=== PATIENT | female | born 1955 | race Caucasian/White ===

== ENCOUNTER 2017-06-06 06:13 | Day surgery (SDC) | payer OTHER ==
[2017-06-03 16:54] VITALS: BMI 32.9
[2017-06-06 07:05] VITALS: TEMP 98
--- NOTE | 2017-06-06 07:10 | HP ---
Admitting History and Physical - Primary Care Physician PCP: Gabriela La - Admission History of Present Illness: Patient is a 62 y/o female with a past medical history of anxiety/depression, hyperlipidemia, IBD, iron deficiency anemia (s/p gastric bypass), and migraine. Patient presents for ECT, this will be her first ECT. She reports trying different medication regimens in the past and was referred for ect by her psychiatrist at [facility]. She denies any suicidal or homicidal ideation, visual or auditory hallucinations. She reports her last hospitalization for depression was in 2004 at [facility]. 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 Cardiovascular: Yes: Hyperlipdemia Gastrointestinal: Yes: Irritable Bowel Disease Psych: Yes: Anxiety, Depression - Smoking History Smoking history: Never smoked Home Medications - Allergies Allergies/Adverse Reactions: Allergies Allergy/AdvReac Type Severity Reaction Status Date / Time Penicillins Allergy Severe Verified 06/03/17 16:32 - Home Medications Home Medications: Ambulatory Orders Amitriptyline HCl [Elavil -] 125 mg PO HS 06/03/17 Aspirin [Aspirin EC] 81 mg PO HS 06/03/17 Clonazepam [Klonopin] 1 mg PO HS 06/03/17 Docusate Sodium [Colace -] 300 mg PO HS 06/03/17 Ergocalciferol (Vitamin D2) [Vitamin D2] 50,000 unit PO WEEKLY 06/03/17 Fluticasone Prop 0.05% Nasal [Flonase -] 1 - 2 spray NS BID PRN 06/03/17 Methylcellulose [Citrucel] 500 mg PO HS 06/03/17 Metoprolol Tartrate [Lopressor -] 12.5 mg PO DAILY 06/03/17 Perphenazine 8 mg PO HS 06/03/17 Perphenazine [Trilafon] 4 mg PO DAILY 06/03/17 Rosuvastatin [Crestor -] 10 mg PO HS 06/03/17 Topiramate [Topamax] 100 mg PO HS 06/03/17 Family Disease History - Family Disease History Family History: Denies Review of Systems - Review of Systems Constitutional: reports: No Symptoms Eyes: reports: No Symptoms HENT: reports: No Symptoms Neck: reports: No Symptoms Cardiovascular: reports: No Symptoms Respiratory: reports: No Symptoms Gastrointestinal: reports: No Symptoms Genitourinary: reports: No Symptoms Breasts: reports: No Symptoms Reported Musculoskeletal: reports: No Symptoms Integumentary: reports: No Symptoms Neurological: reports: No Symptoms Endocrine: reports: No Symptoms Hematology/Lymphatic: reports: No Symptoms Psychiatric: reports: Anxiety, Depression Physical Examination Constitutional: Yes: Well Nourished, No Distress, Calm Eyes: Yes: WNL, Conjunctiva Clear, EOM Intact HENT: Yes: WNL, Atraumatic, Normocephalic Neck: Yes: WNL, Supple, Trachea Midline Cardiovascular: Yes: WNL, Regular Rate and Rhythm, S1, S2 Respiratory: Yes: WNL, Regular, CTA Bilaterally Gastrointestinal: Yes: WNL, Normal Bowel Sounds, Soft ...Rectal Exam: Yes: Deferred Renal/: Yes: WNL Breast(s): Yes: WNL Musculoskeletal: Yes: WNL Extremities: Yes: WNL Edema: No Peripheral Pulses WNL: Yes Peripheral Pulses: Left Radial: 4+, Right Radial: 4+, Left Doralis Pedis: 3+, Right Dorsalis Pedis: 3+, Left Femoral: 3+, Right Femoral: 3+ Integumentary: Yes: WNL Neurological: Yes: WNL, Alert, Oriented ...Motor Strength: WNL Psychiatric: Yes: WNL, Alert, Oriented Labs: reviewed 12/24 Imaging - Results EKG: Image Reviewed, Other (nsr no ischemic changes) Assessment/Plan patient is a 62y/o female that presents for ect, patient's labs and ekg reviewed. pt is low risk for procedure.
[2017-06-06] MEDS ORDERED: KETAMINE HCL 500 MG/10 ML VIAL ONE (08:54)
[2017-06-06 10:02] VITALS: BP 129/82; PULSE 71
[2017-06-06] MEDS ORDERED: ONDANSETRON 4 MG/2 ML VIAL IVPUSH PRN (12:25)
[2017-06-06] MEDS ORDERED: LACTATED RINGERS SOLUTION 1,000 ML IV SCH (12:30)
== END 2017-06-06 10:00 | disposition home or self-care (01) ==
LOC: FECT 06:13
PROVIDERS: ATTEND Psychiatry & Neurology Psychiatry
PROC: GZB4ZZZ Other Electroconvulsive Therapy (ICD-10-PCS; principal; 2017-06-06 08:15)
DX: F33.3 Major depressive disorder, recurrent, severe with psychotic symptoms (principal); E78.5 Hyperlipidemia, unspecified; F41.9 Anxiety disorder, unspecified; D50.9 Iron deficiency anemia, unspecified; K58.9 Irritable bowel syndrome, unspecified; Z79.84 Long term (current) use of oral hypoglycemic drugs; Z98.84 Bariatric surgery status
CPT/HCPCS: 90870; 94760

== ENCOUNTER 2017-06-08 05:41 | Day surgery (SDC) | payer OTHER ==
[2017-06-06 13:50] VITALS: BMI 32.9
[2017-06-08] MEDS ORDERED: KETAMINE HCL 500 MG/10 ML VIAL ONE (07:42)
[2017-06-08] MEDS ORDERED: ONDANSETRON 4 MG/2 ML VIAL IVPUSH PRN (08:15)
[2017-06-08] MEDS ORDERED: ACETAMINOPHEN 325 MG TABLET (FP) PO PRN (08:15)
[2017-06-08 08:47] VITALS: TEMP 98.2
[2017-06-08 09:13] VITALS: BP 132/86; PULSE 78
== END 2017-06-08 09:23 | disposition home or self-care (01) ==
LOC: FECT 05:41
PROVIDERS: ATTEND Psychiatry & Neurology Psychiatry
PROC: GZB4ZZZ Other Electroconvulsive Therapy (ICD-10-PCS; principal; 2017-06-08 08:30)
DX: F33.2 Major depressive disorder, recurrent severe without psychotic features (principal)
CPT/HCPCS: 90870; 94760

== ENCOUNTER 2017-06-10 05:39 | Day surgery (SDC) | payer OTHER ==
[2017-06-07 10:42] VITALS: BMI 32.9
[2017-06-10] MEDS ORDERED: KETAMINE HCL 500 MG/10 ML VIAL ONE (07:29)
[2017-06-10 08:25] VITALS: TEMP 98.1
[2017-06-10 09:08] VITALS: BP 126/84; PULSE 70
== END 2017-06-10 09:10 | disposition home or self-care (01) ==
LOC: FECT 05:39
PROVIDERS: ATTEND Psychiatry & Neurology Psychiatry
PROC: GZB4ZZZ Other Electroconvulsive Therapy (ICD-10-PCS; principal; 2017-06-10 08:45)
DX: F33.2 Major depressive disorder, recurrent severe without psychotic features (principal)
CPT/HCPCS: 90870; 94760

== ENCOUNTER 2017-06-15 05:41 | Day surgery (SDC) | payer OTHER ==
[2017-06-07 10:47] VITALS: BMI 32.9
[2017-06-15] MEDS ORDERED: KETAMINE HCL 500 MG/10 ML VIAL ONE (07:07)
[2017-06-15] MEDS ORDERED: ACETAMINOPHEN 325 MG TABLET (FP) PO PRN (07:43)
[2017-06-15] MEDS ORDERED: ONDANSETRON 4 MG/2 ML VIAL IVPUSH PRN (07:43)
[2017-06-15 08:08] VITALS: TEMP 98.3
[2017-06-15 09:36] VITALS: BP 126/78; PULSE 72
== END 2017-06-15 09:15 | disposition home or self-care (01) ==
LOC: FECT 05:41
PROVIDERS: ATTEND Psychiatry & Neurology Psychiatry
PROC: GZB4ZZZ Other Electroconvulsive Therapy (ICD-10-PCS; principal; 2017-06-15 07:15)
DX: F33.2 Major depressive disorder, recurrent severe without psychotic features (principal)
CPT/HCPCS: 90870; 94760

== ENCOUNTER 2017-06-17 06:35 | Day surgery (SDC) | payer OTHER ==
[2017-06-07 10:50] VITALS: BMI 32.9
[2017-06-17] MEDS ORDERED: KETAMINE HCL 500 MG/10 ML VIAL ONE (08:51)
[2017-06-17] MEDS ORDERED: LACTATED RINGERS SOLUTION 1,000 ML IV SCH (09:15)
[2017-06-17 10:47] VITALS: TEMP 98.6
[2017-06-17 10:49] VITALS: BP 132/82; PULSE 72
== END 2017-06-17 10:35 | disposition home or self-care (01) ==
LOC: FECT 06:35
PROVIDERS: ATTEND Psychiatry & Neurology Psychiatry
PROC: GZB4ZZZ Other Electroconvulsive Therapy (ICD-10-PCS; principal; 2017-06-17 07:30)
DX: F33.2 Major depressive disorder, recurrent severe without psychotic features (principal)
CPT/HCPCS: 90870; 94760

== ENCOUNTER 2017-06-20 05:35 | Day surgery (SDC) | payer OTHER ==
[2017-06-20 06:28] VITALS: TEMP 98.5
[2017-06-20] MEDS ORDERED: KETAMINE HCL 500 MG/10 ML VIAL ONE (06:58)
[2017-06-20] MEDS ORDERED: ONDANSETRON 4 MG/2 ML VIAL IVPUSH PRN (07:26)
[2017-06-20 08:15] VITALS: BP 137/89; PULSE 76
== END 2017-06-20 09:00 | disposition home or self-care (01) ==
LOC: FECT 05:35
PROVIDERS: ATTEND Psychiatry & Neurology Psychiatry
PROC: GZB4ZZZ Other Electroconvulsive Therapy (ICD-10-PCS; principal; 2017-06-20 07:30)
DX: F33.2 Major depressive disorder, recurrent severe without psychotic features (principal)
CPT/HCPCS: 90870; 94760

== ENCOUNTER 2017-06-22 05:51 | Day surgery (SDC) | payer OTHER ==
[2017-06-15 15:52] VITALS: BMI 32.9
[2017-06-22] MEDS ORDERED: KETAMINE HCL 500 MG/10 ML VIAL ONE (07:40)
[2017-06-22 08:56] VITALS: PULSE 75
[2017-06-22 09:14] VITALS: TEMP 97.5
[2017-06-22 09:28] VITALS: BP 122/80
== END 2017-06-22 09:29 | disposition home or self-care (01) ==
LOC: FECT 05:51
PROVIDERS: ATTEND Psychiatry & Neurology Psychiatry
PROC: GZB4ZZZ Other Electroconvulsive Therapy (ICD-10-PCS; principal; 2017-06-22 07:00)
DX: F33.2 Major depressive disorder, recurrent severe without psychotic features (principal)
CPT/HCPCS: 90870; 94760

== ENCOUNTER 2017-06-24 05:58 | Day surgery (SDC) | payer OTHER ==
[2017-06-16 08:10] VITALS: BMI 32.9
[2017-06-24] MEDS ORDERED: KETAMINE HCL 500 MG/10 ML VIAL ONE (07:50)
[2017-06-24 08:52] VITALS: TEMP 98.8
[2017-06-24 09:48] VITALS: BP 119/69; PULSE 82
== END 2017-06-24 09:30 | disposition home or self-care (01) ==
LOC: FECT 05:58
PROVIDERS: ATTEND Psychiatry & Neurology Psychiatry
PROC: GZB4ZZZ Other Electroconvulsive Therapy (ICD-10-PCS; principal; 2017-06-24 07:00)
DX: F33.2 Major depressive disorder, recurrent severe without psychotic features (principal)
CPT/HCPCS: 90870; 94760

== ENCOUNTER 2017-06-27 05:36 | Day surgery (SDC) | payer OTHER ==
[2017-06-21 07:40] VITALS: BMI 32.9
[2017-06-27] MEDS ORDERED: KETAMINE HCL 500 MG/10 ML VIAL ONE (07:08)
[2017-06-27] MEDS ORDERED: LACTATED RINGERS SOLUTION 1,000 ML IV SCH (08:00)
[2017-06-27 08:24] VITALS: TEMP 98.7
[2017-06-27 09:44] VITALS: BP 122/72; PULSE 70
== END 2017-06-27 09:30 | disposition home or self-care (01) ==
LOC: FECT 05:36
PROVIDERS: ATTEND Psychiatry & Neurology Psychiatry
PROC: GZB4ZZZ Other Electroconvulsive Therapy (ICD-10-PCS; principal; 2017-06-27 07:00)
DX: F33.2 Major depressive disorder, recurrent severe without psychotic features (principal)
CPT/HCPCS: 90870; 94760

== ENCOUNTER 2017-06-29 05:38 | Day surgery (SDC) | payer OTHER ==
[2017-06-29] MEDS ORDERED: KETAMINE HCL 500 MG/10 ML VIAL ONE (07:39)
[2017-06-29 08:50] VITALS: TEMP 98.3
[2017-06-29 09:44] VITALS: BP 121/81; PULSE 80
== END 2017-06-29 09:42 | disposition home or self-care (01) ==
LOC: FECT 05:38
PROVIDERS: ATTEND Psychiatry & Neurology Psychiatry
PROC: GZB4ZZZ Other Electroconvulsive Therapy (ICD-10-PCS; principal; 2017-06-29 07:00)
DX: F33.2 Major depressive disorder, recurrent severe without psychotic features (principal)
CPT/HCPCS: 90870; 94760

== ENCOUNTER 2017-07-04 05:37 | Day surgery (SDC) | payer OTHER ==
[2017-06-28 10:25] VITALS: BMI 32.9
[2017-07-04] MEDS ORDERED: KETAMINE HCL 500 MG/10 ML VIAL ONE (07:05)
[2017-07-04 08:21] VITALS: TEMP 97.8
[2017-07-04 09:30] VITALS: BP 114/73; PULSE 88
== END 2017-07-04 09:15 | disposition home or self-care (01) ==
LOC: FECT 05:37
PROVIDERS: ATTEND Psychiatry & Neurology Psychiatry
PROC: GZB4ZZZ Other Electroconvulsive Therapy (ICD-10-PCS; principal; 2017-07-04 07:00)
DX: F33.2 Major depressive disorder, recurrent severe without psychotic features (principal)
CPT/HCPCS: 90870; 94760

== ENCOUNTER 2017-07-06 05:38 | Day surgery (SDC) | payer OTHER ==
[2017-06-28 09:55] VITALS: BMI 32.9
[2017-07-06] MEDS ORDERED: KETAMINE HCL 500 MG/10 ML VIAL ONE (06:57)
[2017-07-06 07:52] VITALS: TEMP 98.6
--- NOTE | 2017-07-06 08:07 | HP ---
Admitting History and Physical - Admission History of Present Illness: patient is a 62 y/o female with a past medical history of anxiety, depression, hyperlipidemia, IBD, and iron deficiency anemia (s/p gastric bypass). Patient presents for ect his last ect was 07/04/17. She reports feeling well, she does report some improvement in depressive symptoms since starting ECT. She denies any recent illnesses or hospitalizations. She denies any suicidal or homicidal ideation, visual or auditory hallucinations. 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 Cardiovascular: Yes: Hyperlipdemia Gastrointestinal: Yes: Irritable Bowel Disease Psych: Yes: Anxiety, Depression - Smoking History Smoking history: Never smoked Have you smoked in the past 12 months: No - Alcohol/Substance Use Hx Alcohol Use: No Home Medications - Allergies Allergies/Adverse Reactions: Allergies Allergy/AdvReac Type Severity Reaction Status Date / Time Penicillins Allergy Severe Verified 06/03/17 16:32 - Home Medications Home Medications: Ambulatory Orders Amitriptyline HCl [Elavil -] 125 mg PO HS 06/03/17 Aspirin [Aspirin EC] 81 mg PO HS 06/03/17 Clonazepam [Klonopin] 1 mg PO HS 06/03/17 Docusate Sodium [Colace -] 300 mg PO HS 06/03/17 Ergocalciferol (Vitamin D2) [Vitamin D2] 50,000 unit PO WEEKLY 06/03/17 Fluticasone Prop 0.05% Nasal [Flonase -] 1 - 2 spray NS BID PRN 06/03/17 Methylcellulose [Citrucel] 500 mg PO HS 06/03/17 Metoprolol Tartrate [Lopressor -] 12.5 mg PO DAILY 06/03/17 Perphenazine 8 mg PO HS 06/03/17 Perphenazine [Trilafon -] 4 mg PO DAILY 06/03/17 Rosuvastatin [Crestor -] 10 mg PO HS 06/03/17 Topiramate [Topamax] 150 mg PO HS 06/20/17 Family Disease History - Family Disease History Family History: Denies Review of Systems - Review of Systems Constitutional: reports: No Symptoms Eyes: reports: No Symptoms HENT: reports: No Symptoms Neck: reports: No Symptoms Cardiovascular: reports: No Symptoms Respiratory: reports: No Symptoms Gastrointestinal: reports: No Symptoms Genitourinary: reports: No Symptoms Breasts: reports: No Symptoms Reported Musculoskeletal: reports: No Symptoms Integumentary: reports: No Symptoms Neurological: reports: No Symptoms Endocrine: reports: No Symptoms Hematology/Lymphatic: reports: No Symptoms Psychiatric: reports: No Symptoms Physical Examination Vital Signs: Vital Signs Temperature 98.6 F 07/06/17 07:45 Pulse Rate 74 07/06/17 07:45 Respiratory Rate 18 07/06/17 07:45 Blood Pressure 119/80 07/06/17 07:45 O2 Sat by Pulse Oximetry (%) 97 07/06/17 07:45 Constitutional: Yes: Well Nourished, No Distress, Calm Eyes: Yes: WNL, Conjunctiva Clear, EOM Intact HENT: Yes: WNL, Atraumatic, Normocephalic Neck: Yes: WNL, Supple, Trachea Midline Cardiovascular: Yes: WNL, Regular Rate and Rhythm, S1, S2 Respiratory: Yes: WNL, Regular, CTA Bilaterally Gastrointestinal: Yes: WNL, Normal Bowel Sounds, Soft ...Rectal Exam: Yes: Deferred Renal/: Yes: WNL Breast(s): Yes: WNL Musculoskeletal: Yes: WNL Extremities: Yes: WNL Edema: No Peripheral Pulses WNL: Yes Peripheral Pulses: Left Radial: 4+, Right Radial: 4+, Left Doralis Pedis: 3+, Right Dorsalis Pedis: 3+, Left Femoral: 3+, Right Femoral: 3+ Integumentary: Yes: WNL Neurological: Yes: WNL, Alert, Oriented ...Motor Strength: WNL Psychiatric: Yes: WNL, Alert, Oriented Labs: reviewed 06/03/17 Imaging - Results EKG: Image Reviewed, Other (nsr no ischemic changes) Assessment/Plan patient is a 62 y/o female that presents for ect, labs and ekg reviewed patient is medically optimized for procedure informed consent, risks/benefits to be obtained by Dr Olson
[2017-07-06 09:02] VITALS: BP 119/77; PULSE 71
== END 2017-07-06 09:04 | disposition home or self-care (01) ==
LOC: FECT 05:38
PROVIDERS: ATTEND Psychiatry & Neurology Psychiatry
PROC: GZB4ZZZ Other Electroconvulsive Therapy (ICD-10-PCS; principal; 2017-07-06 07:00)
DX: F33.2 Major depressive disorder, recurrent severe without psychotic features (principal)
CPT/HCPCS: 90870; 94760

== ENCOUNTER 2017-07-08 05:41 | Day surgery (SDC) | payer OTHER ==
[2017-07-06 09:10] VITALS: BMI 32.9
[2017-07-08 06:13] VITALS: TEMP 98.1
[2017-07-08] MEDS ORDERED: KETAMINE HCL 500 MG/10 ML VIAL ONE (07:16)
[2017-07-08] MEDS ORDERED: ONDANSETRON 4 MG/2 ML VIAL IVPUSH PRN (08:42)
[2017-07-08] MEDS ORDERED: ACETAMINOPHEN 325 MG TABLET (FP) PO PRN (08:42)
[2017-07-08 08:43] VITALS: BP 131/81; PULSE 78
== END 2017-07-08 09:00 | disposition home or self-care (01) ==
LOC: FECT 05:41
PROVIDERS: ATTEND Psychiatry & Neurology Psychiatry
PROC: GZB4ZZZ Other Electroconvulsive Therapy (ICD-10-PCS; principal; 2017-07-08 08:00)
DX: F33.2 Major depressive disorder, recurrent severe without psychotic features (principal)
CPT/HCPCS: 90870; 94760

== ENCOUNTER 2017-07-11 05:38 | Day surgery (SDC) | payer OTHER ==
[2017-07-08 13:37] VITALS: BMI 32.9
[2017-07-11] MEDS ORDERED: KETAMINE HCL 500 MG/10 ML VIAL ONE (07:10)
[2017-07-11 08:09] VITALS: TEMP 97
[2017-07-11 09:00] VITALS: BP 123/76; PULSE 81
== END 2017-07-11 09:15 | disposition home or self-care (01) ==
LOC: FECT 05:38
PROVIDERS: ATTEND Psychiatry & Neurology Psychiatry
PROC: GZB4ZZZ Other Electroconvulsive Therapy (ICD-10-PCS; principal; 2017-07-11 07:15)
DX: F33.2 Major depressive disorder, recurrent severe without psychotic features (principal)
CPT/HCPCS: 90870; 94760

== ENCOUNTER 2017-07-13 05:36 | Day surgery (SDC) | payer OTHER ==
[2017-07-11 11:08] VITALS: BMI 32.9
[2017-07-13] MEDS ORDERED: KETAMINE HCL 500 MG/10 ML VIAL ONE (06:43)
[2017-07-13] MEDS ORDERED: ONDANSETRON 4 MG/2 ML VIAL IVPUSH PRN (06:50)
[2017-07-13] MEDS ORDERED: LACTATED RINGERS SOLUTION 1,000 ML IV SCH (07:00)
[2017-07-13 08:14] VITALS: TEMP 98.3
[2017-07-13 09:04] VITALS: BP 120/78; PULSE 72
== END 2017-07-13 09:07 | disposition home or self-care (01) ==
LOC: FECT 05:36
PROVIDERS: ATTEND Psychiatry & Neurology Psychiatry
PROC: GZB4ZZZ Other Electroconvulsive Therapy (ICD-10-PCS; principal; 2017-07-13 07:00)
DX: F33.2 Major depressive disorder, recurrent severe without psychotic features (principal)
CPT/HCPCS: 90870; 94760

== ENCOUNTER 2017-07-15 05:42 | Day surgery (SDC) | payer OTHER ==
[2017-07-11 11:14] VITALS: BMI 32.9
[2017-07-15] MEDS ORDERED: KETAMINE HCL 500 MG/10 ML VIAL ONE (06:53)
[2017-07-15 08:14] VITALS: TEMP 97.8
[2017-07-15 09:50] VITALS: BP 135/86; PULSE 76
== END 2017-07-15 09:05 | disposition home or self-care (01) ==
LOC: FECT 05:42
PROVIDERS: ATTEND Psychiatry & Neurology Psychiatry
PROC: GZB4ZZZ Other Electroconvulsive Therapy (ICD-10-PCS; principal; 2017-07-15 07:45)
DX: F33.2 Major depressive disorder, recurrent severe without psychotic features (principal)
CPT/HCPCS: 90870; 94760

== ENCOUNTER 2017-07-18 05:48 | Day surgery (SDC) | payer OTHER ==
[2017-07-15 15:15] VITALS: BMI 32.9
[2017-07-18] MEDS ORDERED: KETAMINE HCL 500 MG/10 ML VIAL ONE (07:31)
[2017-07-18 08:37] VITALS: TEMP 98.4
[2017-07-18 09:11] VITALS: BP 123/67; PULSE 68
== END 2017-07-18 09:03 | disposition home or self-care (01) ==
LOC: FECT 05:48
PROVIDERS: ATTEND Psychiatry & Neurology Psychiatry
PROC: GZB4ZZZ Other Electroconvulsive Therapy (ICD-10-PCS; principal; 2017-07-18 08:00)
DX: F33.2 Major depressive disorder, recurrent severe without psychotic features (principal)
CPT/HCPCS: 90870; 94760

== ENCOUNTER 2017-07-20 05:53 | Day surgery (SDC) | payer OTHER ==
[2017-07-18 14:06] VITALS: BMI 32.9
[2017-07-20] MEDS ORDERED: KETAMINE HCL 500 MG/10 ML VIAL ONE (07:03)
[2017-07-20 08:14] VITALS: TEMP 98.1
[2017-07-20 08:34] VITALS: BP 118/67; PULSE 77
== END 2017-07-20 08:40 | disposition home or self-care (01) ==
LOC: FECT 05:53
PROVIDERS: ATTEND Psychiatry & Neurology Psychiatry
PROC: GZB4ZZZ Other Electroconvulsive Therapy (ICD-10-PCS; principal; 2017-07-20 07:45)
DX: F33.2 Major depressive disorder, recurrent severe without psychotic features (principal)
CPT/HCPCS: 90870; 94760

== ENCOUNTER 2017-07-22 05:40 | Day surgery (SDC) | payer OTHER ==
[2017-07-22 07:22] VITALS: TEMP 98.8; BMI 32.9
[2017-07-22] MEDS ORDERED: KETAMINE HCL 500 MG/10 ML VIAL ONE (08:05)
[2017-07-22] MEDS ORDERED: ACETAMINOPHEN 325 MG TABLET (FP) PO PRN (09:09)
[2017-07-22] MEDS ORDERED: ONDANSETRON 4 MG/2 ML VIAL IVPUSH PRN (09:09)
[2017-07-22] MEDS ORDERED: LACTATED RINGERS SOLUTION 1,000 ML IV SCH (09:15)
[2017-07-22 09:47] VITALS: BP 129/72
[2017-07-22 09:49] VITALS: PULSE 77
== END 2017-07-22 09:20 | disposition home or self-care (01) ==
LOC: FECT 05:40
PROVIDERS: ATTEND Psychiatry & Neurology Psychiatry
PROC: GZB4ZZZ Other Electroconvulsive Therapy (ICD-10-PCS; principal; 2017-07-22 07:30)
DX: F33.2 Major depressive disorder, recurrent severe without psychotic features (principal)
CPT/HCPCS: 90870; 94760

== ENCOUNTER 2017-07-25 05:46 | Day surgery (SDC) | payer OTHER ==
[2017-07-22 10:33] VITALS: BMI 32.9
[2017-07-25] MEDS ORDERED: KETAMINE HCL 500 MG/10 ML VIAL ONE (06:56)
[2017-07-25 09:01] VITALS: TEMP 98.6
[2017-07-25 09:02] VITALS: BP 117/69; PULSE 83
== END 2017-07-25 09:04 | disposition home or self-care (01) ==
LOC: FECT 05:46
PROVIDERS: ATTEND Psychiatry & Neurology Psychiatry
PROC: GZB4ZZZ Other Electroconvulsive Therapy (ICD-10-PCS; principal; 2017-07-25 07:45)
DX: F33.2 Major depressive disorder, recurrent severe without psychotic features (principal)
CPT/HCPCS: 90870; 94760

== ENCOUNTER 2017-07-27 05:42 | Day surgery (SDC) | payer OTHER ==
[2017-07-27] MEDS ORDERED: KETAMINE HCL 500 MG/10 ML VIAL ONE (07:05)
[2017-07-27] MEDS ORDERED: LACTATED RINGERS SOLUTION 1,000 ML IV SCH (07:45)
[2017-07-27 08:36] VITALS: TEMP 98.2
[2017-07-27 08:39] VITALS: BP 138/84; PULSE 89
== END 2017-07-27 08:40 | disposition home or self-care (01) ==
LOC: FECT 05:42
PROVIDERS: ATTEND Psychiatry & Neurology Psychiatry
PROC: GZB4ZZZ Other Electroconvulsive Therapy (ICD-10-PCS; principal; 2017-07-27 07:30)
DX: F33.2 Major depressive disorder, recurrent severe without psychotic features (principal)
CPT/HCPCS: 90870; 94760

== ENCOUNTER 2017-07-29 05:38 | Day surgery (SDC) | payer OTHER ==
[2017-07-26 07:34] VITALS: BMI 32.9
[2017-07-29] MEDS ORDERED: KETAMINE HCL 500 MG/10 ML VIAL ONE (07:26)
[2017-07-29 08:42] VITALS: TEMP 97.6
[2017-07-29 09:03] VITALS: BP 145/85; PULSE 98
== END 2017-07-29 09:05 | disposition home or self-care (01) ==
LOC: FECT 05:38
PROVIDERS: ATTEND Psychiatry & Neurology Psychiatry
PROC: GZB4ZZZ Other Electroconvulsive Therapy (ICD-10-PCS; principal; 2017-07-29 07:00)
DX: F33.2 Major depressive disorder, recurrent severe without psychotic features (principal)
CPT/HCPCS: 90870; 94760